=== PATIENT | male | born 1965 | race Caucasian/White ===

== ENCOUNTER 2019-07-28 20:05 | Emergency (ER) | payer OTHER ==
[~2019-07-28] VITALS: Ht 182.9 cm; Wt 92.5 kg
[2019-07-28] MEDS ORDERED: NORCO 5-325 TA1 EAC1 PO (20:17)
[2019-07-28] MEDS ORDERED: LOPRESSOR50 PO (20:18)
[2019-07-28 21:19] VITALS: BP 132/87
--- NOTE | 2019-07-29 11:17 | EKG ---
[place] [address] ELECTROCARDIOGRAM REPORT Name: SHAJI RAMIREZ [id number] Admission: 07/28/19 Attend Phys: Discharge: 07/28/19 Date of : 63 Report #: [id number] THIS REPORT FOR: //name// [facility] ED Test Date: 2019-07-28 Test Time: 20:22:59 Pat Name: SHAJI RAMIREZ Department: Room: Gender: M Insurance Attorney: ABDI : 1965 Requested By: Sacha Reynoso Order Number: [id number] MD: Erik Quiroga Measurements Intervals [place] Rate: 80 P: 43 MS: 143 QRS: 38 QRSD: 104 T: 41 QT: 401 QTc: 463 Interpretive Statements Sinus rhythm ST elev, probable normal early repol pattern No previous ECG available for comparison Electronically Signed On 07-29-2019 11:17:10 CDT by Erik Quiroga [email or web address] <ELECTRONICALLY SIGNED> By: Erik Quiroga MD, [facility] 07/29/19 1117 21 21 Erik Quiroga MD, FACC /EPI
== END 2019-07-28 21:20 | disposition home or self-care (01) ==
LOC: M.ERS 20:05
DX: S50.11XA Contusion of right forearm, initial encounter (principal); S20.312A Abrasion of left front wall of thorax, initial encounter; M94.0 Chondrocostal junction syndrome [Tietze]; Z88.0 Allergy status to penicillin; Z91.018 Allergy to other foods; V89.2XXA Person injured in unspecified motor-vehicle accident, traffic, initial encounter; Y92.89 Other specified places as the place of occurrence of the external cause; Y93.89 Activity, other specified; Y99.8 Other external cause status